=== PATIENT | male | born 1980 | race Caucasian/White ===

== ENCOUNTER 2020-12-04 19:30 | Emergency (ER) | payer OTHER ==
[~2020-12-04] VITALS: Ht 170.2 cm; Wt 72.6 kg
[2020-12-04 19:49] VITALS: BP 130/98
--- NOTE | 2020-12-04 19:49 | NUR ---
PT OFFLOADED TO THE LOBBY IN [facility] [place].
--- NOTE | 2020-12-04 20:46 | NUR ---
PATIENT LEFT WITHOUT BEING SEEN BY DR. MARROQUIN. NO FURTHER CARE PROVIDED FOR PATIENT.
== END 2020-12-04 20:46 | disposition left against medical advice (07) ==
LOC: MED 19:30
DX: M54.9 Dorsalgia, unspecified (principal); M54.2 Cervicalgia; Z53.21 Procedure and treatment not carried out due to patient leaving prior to being seen by health care provider